=== PATIENT | female | born 1955 | race Caucasian/White ===

== ENCOUNTER 2020-11-11 07:28 | Emergency (ER) | payer OTHER ==
[~2020-11-11 07:28] MED LIST: ATENOLOL25 MG PO; BLACK COHOSH40 MG PO; CARTIA XT300 MG PO; CRESTOR20 MG PO; DULOXETINE HCL60 MG PO; OCUVEL CAPSULE1 EACH PO; PROTONIX 40MG T40 MG PO; RISPERDAL 0.5M0.5 MG PO; SYNTHROID75 MCG PO
[2020-11-11 09:30] LABS: BASOPHIL 0.1 % (0-2); EOSINOPHIL 0.1 % (0-7); HCT 39.8 % (37.0-47.0); HGB 13.5 g/dl (12.5-16.0); MCH 30.5 pg (25.0-31.0); MCHC 33.9 g/dL (32.0-36.0); MONOCYTE 5.4 % (0-12); MPV 10.9 fL (6.0-9.5); NRBC 0; PLT 184 K/uL (150-400); RBC 4.42 M/uL (4.20-5.40); RDW 12.8 % (11.5-14.0); WBC 15.5 K/uL (4.0-10.5)
[2020-11-11 09:40] LABS: BUN/CREAT RATIO (CALC) 11.3 RATIO; CREATININE 1.15 mg/dL (0.51-0.95)
[2020-11-11] MEDS ORDERED: ONDANSETRON ODT4 MG PO (10:22)
== END 2020-11-11 11:01 | disposition home or self-care (01) ==
LOC: FER 07:28
PROVIDERS: Emergency Medicine
DX: K52.9 Noninfective gastroenteritis and colitis, unspecified (principal); I10 Essential (primary) hypertension; E78.5 Hyperlipidemia, unspecified; Z90.49 Acquired absence of other specified parts of digestive tract; Z88.8 Allergy status to other drugs, medicaments and biological substances; Z88.5 Allergy status to narcotic agent; Z79.899 Other long term (current) drug therapy
CPT/HCPCS: 36415; 74022; 80048; 85025; J2405; J7030

== ENCOUNTER 2020-12-14 07:07 | Emergency (ER) | payer OTHER ==
[~2020-12-14 07:07] MED LIST changes: +ONDANSETRON ODT4 MG PO
[2020-12-14 08:36] LABS: BASOPHIL 0.1 % (0-2); EOSINOPHIL 0.2 % (0-7); HCT 37.7 % (37.0-47.0); HGB 12.4 g/dl (12.5-16.0); LYMPHOCYTE 9.1 % (15-48); MCH 29.7 pg (25.0-31.0); MCHC 32.9 g/dL (32.0-36.0); MCV 90.4 fL (78.0-100.0); MONOCYTE 5.7 % (0-12); MPV 11.2 fL (6.0-9.5); NEUTROPHIL 84.5 % (41-80); NRBC 0; PLT 173 K/uL (150-400); RBC 4.17 M/uL (4.20-5.40); WBC 15.3 K/uL (4.0-10.5)
[2020-12-14 09:55] LABS: ALBUMIN 3.9 g/dL (3.4-5.0); BILIRUBIN - TOTAL 0.3 mg/dL (0.2-1.0); CREATININE 1.18 mg/dL (0.51-0.95); GLOBULIN (CALCULATION) 4.3 g/dL; POTASSIUM 3.2 mmol/L (3.5-5.1); TOTAL PROTEIN 8.2 g/dL (6.4-8.2)
[2020-12-14] MEDS ORDERED: HYDROCODON-ACE1 EAC2 PO (10:03)
[2020-12-14] MEDS ORDERED: ONDANSETRON ODT4 MG PO (10:03)
== END 2020-12-14 10:50 | disposition home or self-care (01) ==
LOC: FER 07:07
PROVIDERS: Emergency Medicine
DX: S42.031A Displaced fracture of lateral end of right clavicle, initial encounter for closed fracture (principal); S00.81XA Abrasion of other part of head, initial encounter; R55 Syncope and collapse; A08.4 Viral intestinal infection, unspecified; I10 Essential (primary) hypertension; E78.5 Hyperlipidemia, unspecified; Z88.5 Allergy status to narcotic agent; Z88.8 Allergy status to other drugs, medicaments and biological substances; Z20.822 Contact with and (suspected) exposure to COVID-19; W18.11XA Fall from or off toilet without subsequent striking against object, initial encounter
CPT/HCPCS: 36415; 70450; 71045; 73030; 80053; 84484; 85025; 93005; J2405; J7030; U0002

== ENCOUNTER → 2021-01-11 | Day surgery (SDC) | payer OTHER ==
[~2021-01-11] VITALS: Ht 172.7 cm; Wt 77.6 kg
[~2021-01-11] MED LIST changes: +HYDROCODON-ACE1 EAC2 PO
== END | disposition home or self-care (01) ==
LOC: FAS 10:50
DX: K31.7 Polyp of stomach and duodenum (principal); K29.50 Unspecified chronic gastritis without bleeding; D64.9 Anemia, unspecified; F41.9 Anxiety disorder, unspecified; I10 Essential (primary) hypertension; E78.00 Pure hypercholesterolemia, unspecified; E03.9 Hypothyroidism, unspecified; K21.9 Gastro-esophageal reflux disease without esophagitis; F32.9 Major depressive disorder, single episode, unspecified; Z88.5 Allergy status to narcotic agent; Z88.8 Allergy status to other drugs, medicaments and biological substances; Z79.899 Other long term (current) drug therapy
CPT/HCPCS: 88305; J2250; J2704; J7120

== ENCOUNTER 2022-03-01 15:58 | Emergency (ER) | payer OTHER ==
[2022-03-01] MEDS ORDERED: MEDROL 4MG DOSEP4 MG PO (17:40)
== END 2022-03-01 18:18 | disposition home or self-care (01) ==
LOC: FER 15:58
DX: L23.7 Allergic contact dermatitis due to plants, except food (principal); Z88.5 Allergy status to narcotic agent; Z88.6 Allergy status to analgesic agent
CPT/HCPCS: J1100